=== PATIENT | male | born 1970 | race Caucasian/White ===

== ENCOUNTER 2019-03-14 15:38 | Emergency (ER) | payer OTHER ==
[2019-03-14 15:45] VITALS: BP 159/96
--- NOTE | 2019-03-14 15:47 | EDPHY ---
H & P Stated Complaint: "want to be tested for HIV" Time Seen by Provider: 03/14/19 15:47 - Personal History Current Tetanus/Diphtheria Vaccine: Unsure Current Tetanus Diphtheria and Acellular Pertussis (TDAP): Unsure - Medical/Surgical History Hx Asthma: No Hx Chronic Respiratory Disease: No Hx Diabetes: No Hx Cardiac Disease: No Hx Renal Disease: No Hx Cirrhosis: No Hx Alcoholism: No Hx HIV/AIDS: No Hx Splenectomy or Spleen Trauma: No Other PMH: schizophrenia, IV drug use, circumcision, cyst removed - Social History Smoking Status: Heavy smoker Constitutional: Initial Vital Signs Temperature (C) 36.4 C 03/14/19 15:40 Heart Rate 108 H 03/14/19 15:40 Respiratory Rate 18 03/14/19 15:40 Blood Pressure 159/96 H 03/14/19 15:40 O2 Sat (%) 94 03/14/19 15:40 O2 Delivery Mode Room Air Allergies/Adverse Reactions: Penicillins Allergy (Verified 11/01/11 13:59) Unknown Home Medications: Medication Instructions Recorded No Medications [NO HOME 1 ea [facility] [place] MEDICATIONS] Medical Decision Making ED Course/Re-evaluation: CHIEF COMPLAINT: Shot up last night, wants labs HISTORY OF PRESENT ILLNESS: The patient is a 48 y/o male with a history of IV drug use, hepatitis, and schizophrenia requesting an infectious disease panel after he "shot up" last night. He reports that he does not know if the needle was clean and is concerned that he has HIV now. No fever, headache, body aches, lightheadedness, chest pain, heart palpitations, shortness of breath, cough, abdominal pain, urinary or bowel complaints, numbness, paresthesias. REVIEW OF SYSTEMS: A comprehensive 10 system review of systems is otherwise negative aside from elements mentioned in the history of present illness and medical decision making. PHYSICAL EXAM: HR, BP, O2 Sat, RR. Temp noted General Appearance: Alert, well hydrated, appropriate, and non-toxic appearing. Head: Atraumatic without scalp tenderness or obvious injury Eyes: Pupils equal, round, reactive to light and accommodation, EOMI, no trauma , no injection. Ears: Clear bilaterally, no perforation, normal landmarks Nose: Atraumatic, no rhinorrhea, clear. Throat: There is no erythema or exudates, no lesions, normal tonsils, mucus membranes moist. Neck: Supple, 2+ carotid upstroke, nontender, no lymphadenopathy. Respiratory: No retractions, no distress, no wheezes, and no accessory muscle use. Lungs are clear to auscultation bilaterally. Cardiovascular: Regular rate and rhythm, no murmurs, rubs, or gallops. Bilateral carotid, radial, dorsalis pedis, and posterior tibial pulses intact. Good capillary refill all extremities. Gastrointestinal: Abdomen is soft, nontender, non-distended, no masses, no rebound, no guarding, no peritoneal signs. Musculoskeletal: Normal active ROM of all extremities, atraumatic. Neurological: Alert, appropriate, and interactive. The patient has normal DTRs and non-focal cranial nerves, motor, sensory, and cerebellar exam. Skin: No rashes, good turgor, no nodules on palpation. Past medical history: Hepatitis (unknown type), IV drug use, schizophrenia Past surgical history: Denies Family history: Denies Social history: , transient, not employed DIAGNOSTICS/PROCEDURES/CRITICAL CARE TIME: Not indicated. DIFFERENTIAL DIAGNOSIS: The differential diagnosis for the patient's complaint includes but is not limited to HIV exposure, hepatitis B exposure, hepatitis C exposure, cellulitis , needle stick, viral syndrome. MEDICAL DECISION MAKING: The patient is a 48 y/o male with a history of IV drug use, hepatitis, and schizophrenia requesting an infectious disease panel after he "shot up" last night. He reports that he does not know if the needle was clean and is concerned that he has HIV now. He does not know which hepatitis he has, but states he has had it for a while. I will order an infectious disease panel. I have advised him to follow up with [facility] regarding the labs drawn today. Return precautions provided; patient is comfortable with this plan. Departure - Departure Disposition: Home, Routine, Self-Care Clinical Impression: HIV exposure, IV drug abuse Condition: Good Instructions: Needle Stick Injuries (ED), Hepatitis C (ED), Hepatitis B (ED), HIV Infection (ED) Additional Instructions: 1. Follow up with [facility] to review your blood work. 2. Return to the Emergency Department for fever, chest pain, shortness of breath , increasing pain or other worsening of condition. Referrals: [facility] (ED,. [Edm Groups for Call Sched] - As per Instructions Report Scribed for: Yony Seay Report Scribed by: Jen Sloan Date of Report: 03/14/19 Time of Report: 15:48
[2019-03-14 17:30] LABS: HEPATITIS B SURFACE ANTIGEN NEGATIVE (NEGATIVE)
[2019-03-14 17:35] LABS: HEPATITIS B CORE AB IGM NEGATIVE (NEGATIVE)
[2019-03-14 17:49] LABS: HEPATITIS B CORE AB TOTAL NEGATIVE (NEGATIVE); HEPATITIS C ANTIBODY TOTAL REACTIVE (NEGATIVE)
[2019-03-20 10:51] LABS: HCV QT RNA PCR 198293 IU/mL (<10)
== END 2019-03-14 16:27 | disposition home or self-care (01) ==
DX: Z11.4 Encounter for screening for human immunodeficiency virus [HIV] (principal); F19.10 Other psychoactive substance abuse, uncomplicated; K75.9 Inflammatory liver disease, unspecified
CPT/HCPCS: 86704-90; 86705-90; 87517-90; G0472